=== PATIENT | male | born 1955 | race Caucasian/White ===

== ENCOUNTER 2016-06-26 11:49 | Outpatient (CLI) ==
[2014-08-06 21:02] VITALS: BMI 37.5
[2016-06-26 13:36] LABS: BASOPHILS # (AUTO) 0.1 K/uL (0-0.2); BASOPHILS % (AUTO) 0.8 % (0.0-3.0); EOSINOPHILS # (AUTO) 0.5 K/ul (0.0-0.7); EOSINOPHILS % (AUTO) 4.4 % (0.0-7.0); HEMATOCRIT 47.5 % (42.0-52.0); HEMOGLOBIN 15.6 g/dl (14.0-18.0); IMMATURE GRANULOCYTE % (AUTO) 0.3 % (0.0-5.0); LYMPHOCYTES # (AUTO) 2.4 K/uL (0.60-3.4); LYMPHOCYTES % (AUTO) 23.8 (10.0-50.0); MEAN CORPUSCULAR HEMOGLOBIN 30.4 pg (27.0-31.0); MEAN CORPUSCULAR HGB CONC 32.8 (31.8-35.4); MEAN CORPUSCULAR VOLUME 92.6 fl (80.0-94.0); MONOCYTES # (AUTO) 1.1 K/uL (0.4-2.0); MONOCYTES % (AUTO) 10.4 (0-10); NEUTROPHILS # (AUTO) 6.2 K/ul (2.0-6.9); NEUTROPHILS % (AUTO) 60.3; PLATELET COUNT 312 10^3/uL (140-440); RED BLOOD COUNT 5.13 10^6/ul (4.70-6.10); WHITE BLOOD COUNT 10.23 K/ul (4.2-10.2)
[2016-06-26 15:13] LABS: ALBUMIN 3.9 g/dL (3.4-5.0); ALBUMIN/GLOBULIN RATIO 0.87; ANION GAP 17.5; BILIRUBIN,TOTAL 0.46 mg/dL (0.00-1.20); BUN/CREATININE RATIO 19.6; CALCIUM 9.1 mg/dL (8.2-10.2); CHOL/HDL RATIO 5.7 (4.5-6.4); CREATININE 1.02 mg/dL (0.60-1.10); POTASSIUM 5.5 mmol/L (3.5-5.1); TOTAL PROTEIN 8.4 g/dL (5.8-8.1)
== END 2016-06-26 11:50 | disposition home or self-care (01) ==
LOC: LAB 11:49
PROVIDERS: ATTEND General Practice
DX: I10 Essential (primary) hypertension (principal); E78.5 Hyperlipidemia, unspecified
CPT/HCPCS: 36415; 80053; 80061; 85025

== ENCOUNTER 2016-07-17 10:20 | Outpatient (CLI) ==
[2014-08-06 21:02] VITALS: BMI 37.5
[2016-07-17 12:49] LABS: MAGNESIUM 2.1 mg/dL (1.7-2.2); POTASSIUM 4.5 mmol/L (3.5-5.1)
[2016-07-17 12:59] LABS: BILIRUBIN,URINE Negative (NEGATIVE); KETONES,URINE Negative (NEGATIVE); LEUKOCYTE ESTERASE ,URINE Negative (NEGATIVE); NITRITE,URINE Negative (NEGATIVE); PH,URINE 5.5 (5-9); PROTEIN,URINE Negative (NEGATIVE); URINE, BLOOD Negative (NEGATIVE)
[2016-07-17 13:25] LABS: ADD URINE MICROSCOPIC NO
== END 2016-07-17 10:21 | disposition home or self-care (01) ==
LOC: LAB 10:20
PROVIDERS: ATTEND General Practice
DX: E87.5 Hyperkalemia (principal); E78.5 Hyperlipidemia, unspecified; Z68.41 Body mass index [BMI] 40.0-44.9, adult; Z79.899 Other long term (current) drug therapy
CPT/HCPCS: 36415; 81001; 83525; 83735; 84132

== ENCOUNTER 2017-02-15 17:10 | Outpatient (CLI) ==
[2014-08-06 21:02] VITALS: BMI 37.5
[2017-02-15 17:25] LABS: BASOPHILS # (AUTO) 0.1 K/uL (0-0.2); BASOPHILS % (AUTO) 1.1 % (0.0-3.0); EOSINOPHILS # (AUTO) 0.5 K/ul (0.0-0.7); EOSINOPHILS % (AUTO) 4.7 % (0.0-7.0); HEMATOCRIT 45.8 % (42.0-52.0); HEMOGLOBIN 15.2 g/dl (14.0-18.0); IMMATURE GRANULOCYTE % (AUTO) 0.6 % (0.0-5.0); LYMPHOCYTES # (AUTO) 2.1 K/uL (0.60-3.4); LYMPHOCYTES % (AUTO) 21.2 (10.0-50.0); MEAN CORPUSCULAR HEMOGLOBIN 30.5 pg (27.0-31.0); MEAN CORPUSCULAR HGB CONC 33.2 (31.8-35.4); MONOCYTES # (AUTO) 1.1 K/uL (0.4-2.0); MONOCYTES % (AUTO) 11.2 (0-10); NEUTROPHILS # (AUTO) 6.2 K/ul (2.0-6.9); NEUTROPHILS % (AUTO) 61.2; PLATELET COUNT 324 10^3/uL (140-440); RED BLOOD COUNT 4.98 10^6/ul (4.70-6.10); WHITE BLOOD COUNT 10.11 K/ul (4.2-10.2)
[2017-02-15 17:44] LABS: ALBUMIN 3.6 g/dL (3.4-5.0); ALBUMIN/GLOBULIN RATIO 0.86; BILIRUBIN,TOTAL 0.5 mg/dL (0.00-1.20); BUN/CREATININE RATIO 22.82; CALCIUM 9.5 mg/dL (8.2-10.2); CHOL/HDL RATIO 6.1 (4.5-6.4); CREATININE 0.92 mg/dL (0.60-1.10); TOTAL PROTEIN 7.8 g/dL (5.8-8.1)
== END 2017-02-15 17:11 | disposition home or self-care (01) ==
LOC: LAB 17:10
PROVIDERS: ATTEND General Practice
DX: I10 Essential (primary) hypertension (principal); Z79.899 Other long term (current) drug therapy
CPT/HCPCS: 36415; 80053; 80061; 85025

== ENCOUNTER 2017-02-26 09:55 | Outpatient (CLI) ==
[2014-08-06 21:02] VITALS: BMI 37.5
--- NOTE | 2017-02-26 10:28 | CT ---
EXAM: CT THORAX HISTORY: Pulmonary nodule. TECHNIQUE: CT thorax without intravenous contrast. Multiplanar images presented. Coronal and sagit bright re-formations. COMPARISON: 12/13/2015 FINDINGS: Normal heart size. No pericardial effusion. There is mild atherosclerotic disease. Aortic caliber is within normal limits. There are scattered nonspecific lymph nodes within the subcarinal, paratrach eal and hilar regions which appear stable. Previously mentioned posterior right lower lobe nodule is unchanged allowing for slight differences i n measuring technique currently measuring about 4.6 mm. This is a noncalcified nodule. There are a few linear areas of apparent scarring in the mid to lower left lung which are unchanged. Lungs are o therwise unremarkable. No acute infiltrate, vascular congestion or pleural fluid. The bones reveal no acute abnormality. IMPRESSION: 1. Right lower lobe noncalcified 4.6-mm nodule stable since at least 02/15/2015. This would be cons idered benign behavior. A few areas of scarring in the left lung are also stable since 2014. 2. Nonspecific mediastinal and hilar lymph nodes are unchanged .
== END 2017-02-26 09:56 | disposition home or self-care (01) ==
LOC: RAD 09:55
PROVIDERS: ATTEND General Practice
DX: R91.1 Solitary pulmonary nodule (principal)

== ENCOUNTER 2017-07-27 11:39 | Observation (INO) ==
[2017-07-27] MEDS ORDERED: MORPHINE 4 MG/ML VIAL IVP PRN (12:59)
[2017-07-27] MEDS ORDERED: ATROPINE SULFATE PFS IVP PRN (12:59)
[2017-07-27] MEDS ORDERED: TYLENOL PO PRN (12:59)
[2017-07-27] MEDS ORDERED: VISTARIL INJ IM PRN (12:59)
[2017-07-27] MEDS ORDERED: NITROSTAT SL PRN (12:59)
--- NOTE | 2017-07-27 13:50 | CT ---
EXAM: CT of the chest without contrast History: Short of breath Comparison: Chest CT 02/26/2017 Technique: Multiplanar CT images through the thorax were obtained without the administration of IV c ontrast Findings: Heart size is normal. No pericardial effusion. Great vessels are unremarkable. No patho logically enlarged thoracic lymph nodes. No consolidation. No pleural fluid and no pneumothorax. N o suspicious lung masses or lung nodules. No change in the areas of subsegmental atelectasis within the lingula and left lower lobe. Mild diffuse bronchial wall thickening. Within the visualized upper abdomen. Nonspecific bilateral perinephric stranding. No acute osseous abnormalities. Impression: 1. Mild diffuse bronchial wall thickening but no evidence for pneumonia. 2. No change in the lingular and left middle lobe subsegmental atelectasis. 3. Nonspecific bilateral perinephric stranding. Correlate with urinalysis and renal function tests.
[2017-07-27] MEDS: INFUVITE ADULT 10 ML in D5%-1/2NS-KCL 20 MEQ/L IV SOL 1,000 ML IV SCH (19:31)
[2017-07-27] MEDS: HYDROCHLOROTHIAZIDE PO SCH (19:31)
[2017-07-27] MEDS: ROCEPHIN 2 GM in SODIUM CHLORIDE 100 ML IV SCH (19:31)
[2017-07-27] MEDS: ZESTRIL PO SCH (19:32)
[2017-07-28] MEDS ORDERED: ASPIRIN EC PO SCH (08:00)
[2017-07-28] MEDS: ZESTRIL PO SCH (08:50)
[2017-07-28] MEDS: ROCEPHIN 2 GM in SODIUM CHLORIDE 100 ML IV SCH (08:50)
[2017-07-28] MEDS: HYDROCHLOROTHIAZIDE PO SCH (08:50)
[2017-07-28] MEDS ORDERED: INFUVITE ADULT IV ONE ×2 (10:28→22:26)
[2017-07-28] MEDS: INFUVITE ADULT 10 ML in D5%-1/2NS-KCL 20 MEQ/L IV SOL 1,000 ML IV SCH ×3 (10:42→22:34)
[2017-07-28] MEDS ORDERED: LOVENOX SUBCUT SCH (20:00)
[2017-07-28] MEDS: DUONEB NEB SCH (21:12)
[2017-07-29] MEDS: DUONEB NEB SCH ×2 (05:24→10:32)
[2017-07-29] MEDS: ZESTRIL PO SCH (08:17)
[2017-07-29] MEDS: ROCEPHIN 2 GM in SODIUM CHLORIDE 100 ML IV SCH (08:17)
[2017-07-29] MEDS: HYDROCHLOROTHIAZIDE PO SCH (08:17)
[2017-07-29 10:16] VITALS: BP 98/69; TEMP 98
[2017-07-29] MEDS: INFUVITE ADULT 10 ML in D5%-1/2NS-KCL 20 MEQ/L IV SOL 1,000 ML IV SCH (12:33)
[2017-07-29] MEDS ORDERED: LOVENOX SUBCUT SCH (21:00)
--- NOTE | 2017-08-04 14:51 | HP ---
DATE OF SERVICE: 07/27/17 CHIEF COMPLAINT: Cough and shortness of breath. SOURCE OF HISTORY: Patient. HISTORY OF PRESENT ILLNESS: The patient claimed that he was feeling well Wednesday and mowed the yard. He also felt fairly good Wednesday morning, however in the evening the patient began experiencing cough that was repetitive followed by shortness of breath that was worse on Wednesday, as well as Wednesday. The patient was seen at the office and he does have audible wheezing and his oxygen saturation was 93 at room air. He had rales, coarse, on the right side, as well as expiratory wheeze. Because of the acute problems with shortness of breath, the patient was felt to require hospitalization and was advised admission. PAST PERSONAL HISTORY: The patient was admitted 08/06/2014 for chest pain and had several studies consisting of chest CT, which was mildly abnormal with a nodule. Pulmonary function test, echocardiogram. stress sestamibi, workups were negative. He also had a CT scan of the abdomen and pelvis during that time. The patient is hypertensive and no medications, as well as GERD on medication. The patient had elevated BMI and had increased. He had lumbar surgery in the . FAMILY HISTORY: Father had lung carcinoma. Mother had breast carcinoma. No other diseases in the family. SOCIAL HISTORY: The patient is and resides with his . He continues to smoke 1 1/2 to 2 packs per day. He started smoking since age 16. He denies any alcohol use or substance abuse. MEDICATIONS: Prior to this admission consisted of: Omeprazole 20 mg daily Lisinopril 20 mg daily Hydrochlorothiazide 25 mg daily ALLERGIES: Aspirin and bleach. REVIEW OF SYSTEMS: CONSTITUTIONAL: The patient has no fever or chills. He is tired because of the cough and shortness of breath. OBSTETRICIAN: No headaches, no syncopal episodes and no seizure disorder. VISUAL: Denies any blurred vision, double vision or loss of vision. AUDITORY: Hearing is decreased, but no tinnitus. No pain or drainage. RESPIRATORY: The patient has cough that is repetitive and increasing with shortness of breath and prurulent sputum. The patient has audible wheezing. CARDIOVASCULAR: Denies any chest pain or chest tightness. No diaphoresis. GASTROINTESTINAL: Appetite is good. Denies any nausea, anorexia, abdominal pain or diarrhea. GENITOURINARY: Denies any pain on urination. MUSCULOSKELETAL: The patient does have some joint pains. The pains are livable. He is not taking any medication. ENDOCRINE: The patient has no polyuria or polydipsia. He had gained some 13 pounds since the last visit he had several months ago. INTEGUMENT: Denies any rash or pruritus. HEMATOLOGIC: No history of prolonged bleeding. PSYCHIATRIC: Affect is normal. PHYSICAL EXAMINATION: GENERAL: We have a 62 year old male admitted to the hospital because of repetitive cough and increasing shortness of breath with audible wheezing. VITAL SIGNS: Temperature 98.6, pulse 82, blood pressure 125/82, respiratory rate 20, oxygen saturation 96 at room air. It was 93 at the office. The patient is 288 pounds and 9.36 ounces. He is 70 inches, instead of 70 feet. HEAD: Unremarkable. Scalp with no active dermatitis. FACE: Symmetrical and equal with no significant maxillary sinus tenderness to palpation under pressure, but does have pain in the frontal sinus area to palpation. EYES: Pupils equal/reactive to light, round. Conjunctivae not pale. Sclerae not icteric. EARS: Unremarkable. MOUTH: Unremarkable. THROAT: No inflammation, tumors or exudate. NECK: No masses. No bruit. No tenderness. No rigidity. CHEST: Essentially symmetrical and equal with adequate expansion. LUNGS: Breath sounds are heard in both sides, right with coarse rales plus coarse expiratory wheezing. The left has diminished breath sounds, but no rales. HEART: Audible and regular with good tones. No murmurs. ABDOMEN: Markedly protuberant, soft with no remarkable tenderness. No guarding. No masses palpable. Bowel sounds are active. It would be very difficult to palpate a mass with the abdominal size. EXTERNAL GENITALIA: Not examined. RECTAL: Not performed. LOWER EXTREMITIES: Symmetrical and equal with some ankle edema, plus pitting edema +1. Pulses present. UPPER EXTREMITIES: Symmetrical and equal. ASSESSMENT: 1. BRONCHITIS VERSUS PNEUMONITIS RIGHT SIDE 2. DYSPNEA 3. OXYGEN DESATURATION 4. HYPERTENSION 5. SIGNIFICANT OBESITY 6. HISTORY OF CHEST PAIN, NEGATIVE WORK-UP MTDD
--- NOTE | 2017-08-10 15:46 | DS ---
DATE OF SERVICE: 07/29/17 PATIENT IDENTIFICATION: 62 year old male who presented to the office on 07/27/2017 because of increasing shortness of breath and cough, repetitive with purulent sputum. The patient claimed that he was well Wednesday evening and had mowed the yard. He had also done other work at home. He experienced cough the following day, Wednesday evening, and repetitive. The cough had worsened with increasing shortness of breath by Wednesday and persisted through Wednesday prompting his visit on Wednesday after the holidays on 07/27/2017. This patient was found to have coarse rales on the right side, plus coarse wheezing, expiratory. The heart was audible and regular. His oxygen saturation at the office was 93. The patient had gained a significant amount of weight since the last visit four months ago. He ascribed the weight gain to being sedentary during winter time. HOSPITAL COURSE: The patient's CT showed mild diffuse bronchial wall thickening , but no evidence of pneumonia. No change in the lingular and left middle subsegmental atelectasis. Nonspecific bilateral perinephric stranding. Correlate with urinalysis and renal function. The patient's labs on admission showed mild leukocytosis 12,170 WBC, neutrophils 7.2, monocytes slightly elevated at 11.3. He has a mild anemia. Hemoglobin 13.6, hematocrit 41. Arterial blood gases showed oxygen saturation 94, pH 7.438, PCO2 41.6, oxygen 68 , carbonate 28.1, total CO2 29, base excess 4. FIO2 21. The patient's CMP was unremarkable. TSH normal. Procalcitonin normal. Urinalysis normal. The patient was continued on his home medications. He was given Ceftriaxone 2 grams IV daily. He was given Lovenox 40 mg subcutaneously as prophylaxis. He also was given IV Dextrose 5% in 1/2 saline, plus potassium chloride, plus MVI. The IV was running at 83 cc per hour. The patient on 07/28/2017 claimed to be feeling better. He still has the coarse rales on the right side, as well as the coarse expiratory wheeze. There are no squeaks or rhonchi. The patient's appetite seemed to have been retained , since he eats 100% of the meals. The patient continued to improve and claimed that he is feeling better and no longer short of breath with minimal exertion. The labs were repeated on 07/29/2017 and the CBC showed slight elevation of 11,520, less than the other day. Neutrophils still about the same at 7.4. Monocytes now normal. Fasting Insulin level is 39.3, elevated. Plasma C-Peptide is 6. This patient is not on any medications for diabetes. Blood sugar fasting was normal at 93. This patient is prediabetic and insulin resistant syndrome. This will be discussed in detail with him when he comes back. The patient on the day of discharge was alert, ambulatory. He claims to be feeling better and no cyanosis, no shortness of breath and no audible wheezing, which was present on initial examination and then followed by admission. VITAL SIGNS: The patient's vital signs of 07/29/2017 at 10 a.m. showed a temperature of 98, pulse 86, blood pressure 98/69, respiratory rate 18, oxygen saturation at room air 92. LUNGS: No rales. The coarse breath sounds more or less had resolved. HEART: Audible with good tones. This patient was given Rocephin while in the hospital and he is continued with Omnicef to be taken 300 mg capsule twice a day. The patient is given a prescription for these medications, since he claimed that he did run out of medication, Hydrochlorothiazide, Lisinopril and Omeprazole. He is instructed to see me this coming Wednesday at the office and should call. He should take all of his previous medications of Lisinopril 20 mg daily, Hydrochlorothiazide 25 mg daily. Prescription of Omnicef 300 mg twice a day. Also, his blood pressure will be monitored and if his blood pressure is lower than 130 that the Lisinopril will be reduced. He also was given Hydrochlorothiazide 25 mg. That maybe also reduced depending upon the results. I will discuss with him the elevated fasting Insulin and more or less the normal plasma C-Peptide. I did tell him that he needs to address his weight and he should not be only exercise , but also portions and it should be less than what he had been taking before. I felt that he needed to lose weight to improve his health status. I emphasized and reemphasized to him the need to do that. He also needs to stop smoking. FINAL DIAGNOSES: 1. BRONCHITIS, RIGHT SIDE, IMPROVED 2. ELEVATED BMI 3. CHRONIC TOBACCO USE AND ABUSE The patient is to come and see me this coming [place] and before if there is any concerns. MTDD
== END 2017-07-29 11:57 | disposition home or self-care (01) ==
LOC: INTOOBSV 11:39 → MEDSURG A 11:39
PROVIDERS: ADMIT General Practice; ATTEND General Practice
DX: J40 Bronchitis, not specified as acute or chronic (principal); R06.02 Shortness of breath; D72.829 Elevated white blood cell count, unspecified; E66.01 Morbid (severe) obesity due to excess calories; D64.9 Anemia, unspecified; I10 Essential (primary) hypertension; F17.210 Nicotine dependence, cigarettes, uncomplicated; Z79.899 Other long term (current) drug therapy
CPT/HCPCS: 36415; 80053; 81001; 82550; 82803; 83525; 84145; 84443; 84484; 84681; 85025; 87040; 87070; 93005; 93010; 94640

== ENCOUNTER 2017-08-11 09:39 | Outpatient (CLI) | END 2017-08-11 09:40 | disposition home or self-care (01) | LOC: FCC-LAB 09:39 | PROVIDERS: ATTEND General Practice | DX: E78.5 Hyperlipidemia, unspecified (principal); I10 Essential (primary) hypertension; Z79.899 Other long term (current) drug therapy; Z12.5 Encounter for screening for malignant neoplasm of prostate | CPT/HCPCS: 36415; 80053; 80061; 81001; 85025 ==

== ENCOUNTER 2017-08-20 14:14 | Outpatient (CLI) | END 2017-08-20 14:15 | disposition home or self-care (01) | LOC: FCC-LAB 14:14 | PROVIDERS: ATTEND General Practice | DX: R97.20 Elevated prostate specific antigen [PSA] (principal) | CPT/HCPCS: 36415; 84153 ==

== ENCOUNTER 2018-03-08 07:59 | Outpatient (CLI) | END 2018-03-08 08:00 | disposition home or self-care (01) | LOC: LAB 07:59 → RHC-LAB 08:00 | PROVIDERS: ATTEND General Practice | DX: E78.5 Hyperlipidemia, unspecified (principal); Z79.899 Other long term (current) drug therapy; I10 Essential (primary) hypertension; K21.9 Gastro-esophageal reflux disease without esophagitis; Z72.0 Tobacco use | CPT/HCPCS: 36415; 80053; 80061; 81001; 85025 ==